=== PATIENT | female | born 1950 | race Caucasian/White ===

== ENCOUNTER 2017-03-24 19:06 | Emergency (ER) | payer MEDICARE ==
[2017-03-24] MEDS ORDERED: DIPHTH,PERTUSS(ACELL),TET VAC 0.5 ML VIAL IM ONE ×2 (19:35→19:37)
--- NOTE | 2017-03-24 19:39 | ERNOTE ---
Medical Problem HPI - Narrative Date of Service: 03/24/17 - General Chief Complaint: Laceration Time Seen by Provider: 03/24/17 19:27 Source: patient, family, RN notes reviewed Exam Limitations: no limitations - Immun/Allergies/Home Medications Immunizations: IMMUNIZATION HX Immunizations Up to Date Yes History of Influenza Vaccine No Hx Pneumococcal Vaccination No Allergies/Adverse Reactions: Allergies kiwi Allergy (Severe, Verified 10/17/16 10:54) Swelling of Throat azithromycin [From Zithromax] Adverse Reaction (Mild, Verified 10/17/16 10:54) HURTS STOMACH cephalexin monohydrate [From Keflex] Adverse Reaction (Mild, Verified 10/17/16 10:54) GI DISTRESS cimetidine [From Tagamet] Adverse Reaction (Mild, Verified 10/17/16 10:54) BOWEL TROUBLE cimetidine HCl [From Tagamet] Adverse Reaction (Mild, Verified 10/17/16 10:54) BOWEL TROUBLE codeine Adverse Reaction (Mild, Verified 10/17/16 10:54) UPSET STOMACH oxycodone HCl [From Percocet] Adverse Reaction (Mild, Verified 10/17/16 10:54) Nausea phentermine Adverse Reaction (Mild, Verified 10/17/16 10:54) CONSTIPATION ranitidine HCl [From Zantac] Adverse Reaction (Mild, Verified 10/17/16 10:54) LOOSE BOWELS rofecoxib [From Vioxx] Adverse Reaction (Mild, Verified 10/17/16 10:54) STOMACH PAIN Home Medications: HOME MEDICATIONS Albuterol Sulfate [Proair Hfa] 1 - 2 puff IH Q4H PRN 02/04/16 [Last Taken Unknown] Budesonide/Formoterol Fumarate [Symbicort 160-4.5 Mcg Inhaler] 2 puff IH BID [Last Taken Unknown] Inhaler,Assist Device,Accesory [Vortex] 1 each MC DAILY 02/04/16 [Last Taken Unknown] Ipratropium/Albuterol Sulfate [Combivent Respimat Inhal [place]] 1 puff IH QID [Last Taken Unknown] Levothyroxine Sodium [Synthroid] 50 mcg PO DAILY 02/04/16 [Last Taken Unknown] Montelukast Sodium [Singulair] 10 mg PO DAILY 02/04/16 [Last Taken Unknown] Wheat Dextrin [Benefiber] 1 each PO DAILY 02/04/16 [Last Taken Unknown] Naproxen Sodium [Aleve] 2 tab PO DAILY 03/24/17 [Last Taken Unknown] - History of Present History Narrative: 67 y/o female brought to the ED by her for injuries d/t a fall. She was bending over, working in a garden, when she lost her balance and fell forward, striking the top of her head on a wall. She reports pain and swelling to the top of her head. She also has abrasions to her lower anterior legs. She denies any loss of consciousness. She is unsure of her last tetanus vaccination. Date (Duration): 03/24/17 Review of Systems - Review of Systems Constitutional: Present: no symptoms reported EYE: Absent: eye pain, blurred vision ENT: Absent: ear discharge, nasal drainage Respiratory: Present: no symptoms reported Cardiology: Absent: chest pain, syncope Gastrointestinal/Abdominal: Present: nausea. Absent: vomiting, abdominal pain Genitourinary: Present: no symptoms reported Musculoskeletal: Absent: neck pain, joint pain, joint swelling Skin: Present: lumps. Absent: lesions Neurological: Present: headache. Absent: dizziness/light-headedness Endocrine: Present: no symptoms reported Hematologic/Lymphatic: Absent: easy bruising, easy bleeding Psych: Present: no symptoms reported - Patient's Past Medical History Patient History - Medical: GERD, Hypothyroidism, Kidney stone, Other Patient History - Cardiac/Respiratory: Asthma Patient History - Cancer: No Hx of Cancer Patient History - Surgical Procedures: Appendectomy, Colonoscopy, Hysterectomy, Tubal Ligation, Other Patient History - Other: None - Social History Living Situations: spouse Abuse History: No History of abuse Psych History: No pertinent hx Smoking Status: Never smoker Have you smoked in the past 12 months: No Do you dip or chew tobacco: No Alcohol Use: rarely Drug Use: none - Immunizations Immunizations Up to Date: Yes Hx Pneumococcal Vaccination: No History of Influenza Vaccine: No Physical Exam - Physical Exam General Appearance: Present: wd/wn, alert, no apparent distress Eye Exam: Normal inspection: bilateral, PERRL: bilateral, EOMI: bilateral Ears, Nose, Throat: Present: normal ENT inspection Neck: Present: normal inspection, nontender, supple, full range of motion Respiratory: Present: no respiratory distress, normal breath sounds, no accessory muscle use, lungs clear Cardiovascular/Chest: Present: regular rate, rhythm, no murmur, normal peripheral pulses Extremity Exam: Present: non-tender, normal range of motion, no edema Neurological Exam: Present: alert, oriented, normal mood/affect, no motor/ sensory deficits Skin Exam: Present: normal color, warm/dry, other - large scalp contusion with overlying abrasions, minor abrasions on anterior lower legs ED Progress - Vital Signs Patient's Vital Signs:: I have reviewed the patient's vital signs. Vital Signs: Vital Signs 03/24/17 03/24/17 19:12 19:36 Temperature 37.4 C Pulse Rate 84 85 Respiratory 14 18 Rate Blood Pressure 170/96 150/83 O2 Sat by Pulse 93 95 Oximetry - Progress/Reassessment Chief Complaint: Laceration Progress:: Improved Departure - Departure Clinical Impression: Abrasions of multiple sites Scalp contusion Qualifiers: Encounter type: initial encounter Qualified Code(s): S00.03XA - Contusion of scalp, initial encounter Fall from standing Qualifiers: Encounter type: initial encounter Qualified Code(s): W19.XXXA - Unspecified fall, initial encounter Disposition: Home self-care Condition: Stable Instructions: Head Injury, Adult, [id number] Additional Instructions: Ice to sore areas as needed Ibuprofen for pain Return for worsening symptoms as discussed Referrals: Zuhair Mays MD [Primary Care Provider] -
[2017-03-24 20:05] VITALS: BP 169/98
== END 2017-03-24 20:02 | disposition home or self-care (01) ==
LOC: ER 19:06
DX: S00.01XA Abrasion of scalp, initial encounter (principal); S80.812A Abrasion, left lower leg, initial encounter; S80.811A Abrasion, right lower leg, initial encounter; W18.39XA Other fall on same level, initial encounter; Y93.H2 Activity, gardening and landscaping; Y92.007 Garden or yard of unspecified non-institutional (private) residence as the place of occurrence of the external cause; S00.03XA Contusion of scalp, initial encounter; K21.9 Gastro-esophageal reflux disease without esophagitis; E03.9 Hypothyroidism, unspecified; Z23 Encounter for immunization

== ENCOUNTER 2017-11-25 13:58 | Inpatient (IN) | payer MEDICARE ==
[2017-11-25] MEDS ORDERED: NORMAL SALINE 1,000 ML IV ONE (14:14)
[2017-11-25] MEDS ORDERED: ONDANSETRON HCL/PF 2 MG/ML VIAL IV ONE (14:14)
[2017-11-25 14:39] LABS: Urine Bilirubin 1 mg/dl (NEGATIVE); Urine Ketone 5 mg/dL (NEGATIVE); Urine Nitrite Negative (NEGATIVE); Urine Protein 100 mg/dL (NEGATIVE); Urine Specific Gravity 1.025 SP.GR. (1.005-1.010)
[2017-11-25 14:43] LABS: Hematocrit 41.9 % (37.0-47.0); Mean Cell Volume 90.3 fl (78-100); Mean Corpuscular Hemoglobin 30.2 pg (27-31); Mean Corpuscular Hgb Conc 33.4 g/dl (32-36); Mean Platelet Volume 9.9 fl (6.0-9.5); Neutrophil # 16.2 K/mm3 (1.3-6.0); Neutrophil % 83.1 % (42-75.0); Platelet Count 237 K/mm3 (150-450); Red Blood Count 4.64 M/mm3 (4.2-5.4); Red Cell Distribution Width 14.2 % (11.5-14.0); White Blood Count 19.6 K/mm3 (4.0-10.5)
[2017-11-25 14:48] LABS: Urine Appearance Slightly Cloudy; Urine Blood 5 /ul (NEGATIVE); Urine Color Yellow; Urine WBC 0-5 /hpf (0-5)
[2017-11-25 14:49] LABS: Urine Bacteria TRACE; Urine RBC None Seen /hpf (0-5)
[2017-11-25 14:53] LABS: Anion Gap 12.4 mmol/L (6.8-13.8); BUN/Creatinine Ratio 17.4 (9.0-21.6); Bilirubin, Total 0.4 mg/dL (0.0-1.1); Ca. Corrected For Albumin 9.4 mg/dL (8.4-10.2); Calcium * 8.9 mg/dL (7.9-10.9); Carbon Dioxide 26.4 mmol/L (24-32.6); Potassium 3.8 mmol/L (3.4-4.6); Total Protein 7.9 gm/dL (6.2-8.2)
[2017-11-25] MEDS ORDERED: ONDANSETRON HCL/PF 2 MG/ML VIAL ONE (15:30)
[2017-11-25] MEDS ORDERED: ALBUTEROL SULFATE 2.5 MG/0.5 ML VIAL.NEB IH ONE ×2 (16:30→16:36)
[2017-11-25] MEDS ORDERED: ACETAMINOPHEN 500 MG TABLET PO ONE (16:44)
--- NOTE | 2017-11-25 16:49 | ERNOTE ---
Medical Problem HPI - Narrative Date of Service: 11/25/17 - General Chief Complaint: Flu Symptoms Time Seen by Provider: 11/25/17 14:10 Source: patient Exam Limitations: no limitations - Immun/Allergies/Home Medications Immunizations: IMMUNIZATION HX Immunizations Up to Date Yes History of Influenza Vaccine Yes Hx Pneumococcal Vaccination Yes Allergies/Adverse Reactions: Allergies kiwi Allergy (Severe, Verified 11/25/17 14:06) Swelling of Throat azithromycin [From Zithromax] Adverse Reaction (Mild, Verified 11/25/17 14:06) HURTS STOMACH cephalexin monohydrate [From Keflex] Adverse Reaction (Mild, Verified 11/25/17 14:06) GI DISTRESS cimetidine [From Tagamet] Adverse Reaction (Mild, Verified 11/25/17 14:06) BOWEL TROUBLE cimetidine HCl [From Tagamet] Adverse Reaction (Mild, Verified 11/25/17 14:06) BOWEL TROUBLE codeine Adverse Reaction (Mild, Verified 11/25/17 14:06) UPSET STOMACH oxycodone HCl [From Percocet] Adverse Reaction (Mild, Verified 11/25/17 14:06) Nausea phentermine Adverse Reaction (Mild, Verified 11/25/17 14:06) CONSTIPATION ranitidine HCl [From Zantac] Adverse Reaction (Mild, Verified 11/25/17 14:06) LOOSE BOWELS rofecoxib [From Vioxx] Adverse Reaction (Mild, Verified 11/25/17 14:06) STOMACH PAIN Home Medications: HOME MEDICATIONS Albuterol Sulfate [Proair Hfa] 1 - 2 puff IH Q4H PRN 02/04/16 [Last Taken Unknown] Budesonide/Formoterol Fumarate [Symbicort 160-4.5 Mcg Inhaler] 2 puff IH BID [Last Taken Unknown] Inhaler,Assist Device,Accesory [Vortex] 1 each MC DAILY 02/04/16 [Last Taken Unknown] Ipratropium/Albuterol Sulfate [Combivent Respimat Inhal [place]] 1 puff IH QID [Last Taken Unknown] Levothyroxine Sodium [Synthroid] 50 mcg PO DAILY 02/04/16 [Last Taken Unknown] Montelukast Sodium [Singulair] 10 mg PO DAILY 02/04/16 [Last Taken Unknown] Wheat Dextrin [Benefiber] 1 each PO DAILY 02/04/16 [Last Taken Unknown] Naproxen Sodium [Aleve] 2 tab PO DAILY 03/24/17 [Last Taken Unknown] - History of Present History Narrative: patient has had cough with fever for last 2-3 days Timing: constant, getting worse Severity: moderate Modifying Factors - (Improves): Present: other - nothing Modifying Factors - (Worsens): Present: movement Review of Systems - Narrative Narrative: unremarkable - Review of Systems Constitutional: Present: See HPI, weakness, fatigue, malaise EYE: Present: no symptoms reported ENT: Present: no symptoms reported Respiratory: Present: See HPI, shortness of breath, cough, orthopnea, wheezing Cardiology: Present: no symptoms reported Gastrointestinal/Abdominal: Present: no symptoms reported Genitourinary: Present: no symptoms reported Musculoskeletal: Present: no symptoms reported Skin: Present: no symptoms reported Neurological: Present: no symptoms reported Endocrine: Present: no symptoms reported Hematologic/Lymphatic: Present: no symptoms reported Psych: Present: no symptoms reported All Other Systems: All systems neg except as marked - Narrative Narrative: unremarkable - Patient's Past Medical History Patient History - Medical: GERD, Hypothyroidism, Kidney stone, Other Patient History - Cardiac/Respiratory: Asthma Patient History - Cancer: No Hx of Cancer Patient History - Surgical Procedures: Appendectomy, Colonoscopy, Hysterectomy, Tubal Ligation, Other, Orthopedic Patient History - Other: None LMP (females 10-50): Menopausal - Family History Family History:: no untoward family reactions to anesthesia, no familial bleeding tendencies, no family history of clotting disorders, no family history of premature - Social History Living Situations: home Abuse History: No History of abuse Psych History: No pertinent hx Does anyone smoke in the home?: No Smoking Status: Never smoker Have you smoked in the past 12 months: No Do you dip or chew tobacco: No Patient requests Smoking Cessation Consult: No Initiate information on Smoking Cessation: No Alcohol Use: none Drug Use: none - Immunizations Immunizations Up to Date: Yes Hx Pneumococcal Vaccination: Yes History of Influenza Vaccine: Yes Physical Exam - Physical Exam General Appearance: Present: moderate distress Head Exam: Present: normal inspection, no evidence of injury Eye Exam: Normal inspection: bilateral, PERRL: bilateral, EOMI: bilateral Ears, Nose, Throat: Present: normal ENT inspection Neck: Present: normal inspection, nontender Respiratory: Present: respiratory distress, crackles, rales, rhonchi, stridor Cardiovascular/Chest: Present: regular rate, rhythm, no murmur, normal peripheral pulses Peripheral Pulses: N=norm/S=strong/W=weak/B=bound/A=absent: Carotid (R): Normal , Carotid (L): Normal, Radial (R): Normal, Radial (L): Normal, Femoral (R): Normal, Femoral (L): Normal, Dorsalis-pedis (R): Normal, Dorsalis-pedis (L): Normal Gastrointestinal/Abdominal: Present: normal bowel sounds, nontender, nondistended, soft, no organomegaly Back Exam: Present: normal inspection, normal range of motion, no CVA tenderness , no vertebral tenderness Extremity Exam: Present: normal inspection, non-tender, normal range of motion, no edema Neurological Exam: Present: alert, oriented, normal mood/affect, no motor/ sensory deficits DTR: N=norm/NB=norm/brisk/A=abs/DD=dull/dimin/HC=hyperactive: Bicep (R): Normal , Bicep (L): Normal, Tricep (R): Normal, Tricep (L): Normal, Knee (R): Normal, Knee (L): Normal Skin Exam: Present: normal color, warm/dry Lymphatic Exam: Present: no adenopathy ED Progress - Date and Time Seen: Date and Time: 11/25/17 16:46 condition unchanged - Results and Orders Patient's Lab Results:: I have reviewed the patient's lab results. - Vital Signs Patient's Vital Signs:: I have reviewed the patient's vital signs. Vital Signs: Vital Signs 11/25/17 11/25/17 11/25/17 14:03 15:51 16:06 Temperature 38.5 C H Pulse Rate 115 H 108 H 104 H Respiratory 18 15 14 Rate Blood Pressure 149/97 139/76 123/69 O2 Sat by Pulse 95 96 92 Oximetry 11/25/17 16:21 Temperature Pulse Rate 99 Respiratory 14 Rate Blood Pressure 111/78 O2 Sat by Pulse 95 Oximetry - EKG EKG: NSR - X-Ray X-Ray #1 X-Ray: chest Interpretation: Discd w/ radiologist - right middle pneumonia - Progress/Reassessment Chief Complaint: Flu Symptoms Progress:: Unchanged - Transfer of Care Expected Disposition: Admit Plan - Plan Plan: case discussed with dr chun, to admit to observation Departure Clinical Impression: Pneumonia - Departure Disposition: [facility] Condition: Fair
[2017-11-25] MEDS ORDERED: ALBUTEROL SULFATE 2.5 MG/0.5 ML VIAL.NEB IH PRN (16:51)
[2017-11-25] MEDS: cefTRIAXone SODIUM 1,000 MG in DEXTROSE 5 % IN WATER 50 ML IV SCH ×2 (17:08)
[2017-11-25] MEDS: AZITHROMYCIN 500 MG in DEXTROSE 5 % IN WATER 250 ML IV SCH ×2 (18:10)
[2017-11-25] MEDS ORDERED: ONDANSETRON 4 MG TAB.RAPDIS PO PRN (19:54)
[2017-11-25] MEDS ORDERED: MORPHINE SULFATE 2 MG/ML DISP.SYRIN IV PRN (19:55)
--- NOTE | 2017-11-25 20:05 | HP ---
Chief Complaint - Chief Complaint Date of Service: 11/25/17 Time of Service: 20:01 Chief Complaint: cough, dyspnea, fever History of Present Illness: Lorena is a 67 year old female patient of Dr Muse with a PMH of moderate, persistent asthma, diverticulitis, gerd, HLD, hypothyroidism, and eczema who presented to the ER today with c/o cough, fever, nausea, body aches and sore throat. ER evaluation showed temp 38.7, hr 105, bp 111/78. labs significant for elevated wbc at 19.6 with 83.1 neutrophils, lactic acid 1.8, influenza and strep negative, and UA positive for 100 protein, 5 blood, 1 bili and 25 leukocytes. Chest xray showed RLL pneumonia. Lungs sounds scattered rhonchi with wheezes and rales in the RLL. Patient to be admitted to observation for RLL pneumonia and asthma exacerbation. - Patient's Past Medical History Patient History - Medical: GERD, Hypothyroidism, Kidney stone, Other Patient History - Cardiac/Respiratory: Asthma Patient History - Cancer: No Hx of Cancer Patient History - Surgical Procedures: Appendectomy, Colonoscopy, Hysterectomy, Tubal Ligation, Other, Orthopedic Patient History - Other: None LMP (females 10-50): Menopausal - Family History Family History:: no untoward family reactions to anesthesia, no familial bleeding tendencies, no family history of clotting disorders, no family history of premature - Family History Father Family History - Medical: Family History - Cancer: Lung Mother Family History - Medical: Hypothyroidism - Social History Living Situations: spouse Abuse History: No History of abuse Psych History: No pertinent hx Does anyone smoke in the home?: No Smoking Status: Former smoker Have you smoked in the past 12 months: No Do you dip or chew tobacco: No Patient requests Smoking Cessation Consult: No Initiate information on Smoking Cessation: No Alcohol Use: none Drug Use: none - Immunizations Immunizations Up to Date: Yes Hx Pneumococcal Vaccination: Yes History of Influenza Vaccine: Yes Review Of Systems (GEN) - Review of Systems Generalized/Overall Review: Present: Chills, Fever, Malaise EENTM: Present: Nose Congestion, Throat Pain Respiratory: Present: Cough, Shortness of Breath, Wheezing Cardiac: Present: No Symptoms Reported Abdominal: Present: Nausea. Absent: Abdominal Pain Genitourinary: Present: No Symptoms Reported Musculoskeletal: Present: No Symptoms Reported Neurological: Present: Headache Skin: Present: No Symptoms Reported Endocrine: Present: No Symptoms Reported Misc: All systems neg except as marked Immunizations: IMMUNIZATION HX Immunizations Up to Date Yes History of Influenza Vaccine Yes Hx Pneumococcal Vaccination Yes Allergies/Adverse Reactions: Allergies Allergy/AdvReac Type Severity Reaction Status Date / Time inga Allergy Severe Swelling Verified 11/25/17 18:00 of Throat cephalexin monohydrate AdvReac Mild GI DISTRESS Verified 11/25/17 18:00 [From Keflex] cimetidine [From Tagamet] AdvReac Mild BOWEL Verified 11/25/17 18:00 TROUBLE cimetidine HCl [From Tagamet] AdvReac Mild BOWEL Verified 11/25/17 18:00 TROUBLE codeine AdvReac Mild UPSET Verified 11/25/17 18:00 STOMACH oxycodone HCl [From Percocet] AdvReac Mild Nausea Verified 11/25/17 18:00 phentermine AdvReac Mild CONSTIPATIO Verified 11/25/17 18:00 N ranitidine HCl [From Zantac] AdvReac Mild LOOSE Verified 11/25/17 18:00 BOWELS rofecoxib [From Vioxx] AdvReac Mild STOMACH Verified 11/25/17 18:00 PAIN Home Medications: HOME MEDICATIONS Albuterol Sulfate [Proair Hfa] 1 - 2 puff IH Q4H PRN 02/04/16 [Last Taken Unknown] Inhaler,Assist Device,Accesory [Vortex] 1 each MC DAILY 02/04/16 [Last Taken Unknown] Levothyroxine Sodium [Synthroid] 50 mcg PO DAILY 02/04/16 [Last Taken Unknown] Montelukast Sodium [Singulair] 10 mg PO DAILY 02/04/16 [Last Taken Unknown] Fluticasone/Salmeterol [Advair 100-50 Diskus] 2 puff IH BID 11/25/17 [Last Taken Unknown] Omeprazole 40 mg PO DAILY 11/25/17 [Last Taken Unknown] Exam - Exam Vital Signs: Vital Signs - Last Taken Temp 37.3 C 11/25/17 19:23 Pulse 97 11/25/17 19:23 Resp 16 11/25/17 19:23 BP 108/79 11/25/17 19:23 Pulse Ox 94 11/25/17 19:23 Constitutional: Present: Alert, Oriented x3, Cooperative, No distress ENT Exam: Present: hearing grossly normal Eye Exam: bilateral eye: normal inspection Neck: Present: lymphadenopathy (R), lymphadenopathy (L) Breasts: Present: Exam deferred Respiratory: Present: respiratory distress - mild, rales - RLL, rhonchi - scattered, wheezing - ecattered Cardiovascular/Chest: Present: regular rate, rhythm, no murmur Abdomen: Present: soft, nontender, nondistended, obese /Rectal: Present: Exam deferred Extremity: Present: non-tender, normal inspection Skin Exam: Present: normal color, warm/dry, no cyanosis Diagnostic Studies: Laboratory Results WBC 19.6 K/mm3 (4.0-10.5) H 11/25/17 14:36 RBC 4.64 M/mm3 (4.2-5.4) 11/25/17 14:36 Hgb 14.0 gm/dL (12.5-16.0) 11/25/17 14:36 Hct 41.9 % (37.0-47.0) 11/25/17 14:36 MCV 90.3 fl (78-100) 11/25/17 14:36 MCH 30.2 pg (27-31) 11/25/17 14:36 MCHC 33.4 g/dl (32-36) 11/25/17 14:36 RDW 14.2 % (11.5-14.0) H 11/25/17 14:36 Plt Count 237 K/mm3 (150-450) 11/25/17 14:36 MPV 9.9 fl (6.0-9.5) H 11/25/17 14:36 Immature Gran % (Auto) 2.80 % (0.001-0.429) H 11/25/17 14:36 Immature Gran # (Auto) 0.55 K/mm3 (0.000-0.0310) H 11/25/17 14:36 Neutrophils % 83.1 % (42-75.0) H 11/25/17 14:36 Lymphocytes % 7.5 % (20-51) L 11/25/17 14:36 Monocytes % 6.2 % (0.0-9) 11/25/17 14:36 Eosinophils % 0.2 % (0.0-3.0) 11/25/17 14:36 Basophils % 0.2 % (0.0-1.0) 11/25/17 14:36 Nucleated RBC % 0.0 k/mm3 (0-1) 11/25/17 14:36 Neutrophils # 16.2 K/mm3 (1.3-6.0) H 11/25/17 14:36 Lymphocytes # 1.5 k/mm3 (1.5-3.5) 11/25/17 14:36 Monocytes # 1.2 k/mm3 (0.0-1.0) H 11/25/17 14:36 Eosinophils # 0.0 k/mm3 (0.0-0.7) 11/25/17 14:36 Absolute Basophils 0.0 k/mm3 (0.0-0.1) 11/25/17 14:36 Sodium 133 mmol/L (132-142) 11/25/17 14:36 Plasma Sodium 134 mmol/L (130-142) 11/25/17 14:36 Potassium 3.8 mmol/L (3.4-4.6) 11/25/17 14:36 Chloride 98 mmol/L (97-106) 11/25/17 14:36 Carbon Dioxide 26.4 mmol/L (24-32.6) 11/25/17 14:36 Anion Gap 12.4 mmol/L (6.8-13.8) 11/25/17 14:36 BUN 19 mg/dL (3-23) 11/25/17 14:36 Creatinine 1.09 mg/dL (0.4-1.4) 11/25/17 14:36 Est GFR (Non-Af Amer) 53 mL/min (60-130) L D 11/25/17 14:36 BUN/Creatinine Ratio 17.4 (9.0-21.6) 11/25/17 14:36 Random Glucose 150 mg/dL (70-110) H 11/25/17 14:36 Lactic Acid, Venous 1.8 mmol/L (0.4-1.9) 11/25/17 15:15 Calcium 8.9 mg/dL (7.9-10.9) 11/25/17 14:36 Calcium Adj for Albumin 9.4 mg/dL (8.4-10.2) 11/25/17 14:36 Total Bilirubin 0.4 mg/dL (0.0-1.1) 11/25/17 14:36 AST 25 U/L (0-48) 11/25/17 14:36 ALT 23 U/L (19-67) 11/25/17 14:36 Alkaline Phosphatase 51 U/L (50-170) 11/25/17 14:36 C-Reactive Prot, Quant Less than 0.2 mg/dL (0.0-0.9) 11/25/17 14:28 Total Protein 7.9 gm/dL (6.2-8.2) 11/25/17 14:36 Albumin 3.0 gm/dl (3.4-5.0) L 11/25/17 14:36 Procalcitonin 0.52 ng/mL (0.05-0.50) H 11/25/17 14:28 Urine Color Yellow 11/25/17 14:36 Urine Appearance Slightly cloudy 11/25/17 14:36 Urine pH 6.0 pH (5.0-7.0) 11/25/17 14:36 Ur Specific [place] 1.025 SP.GR. (1.005-1.010) 11/25/17 14:36 Urine Protein 100 mg/dL (NEGATIVE) H 11/25/17 14:36 Urine Glucose (UA) Negative mg/dL (NEGATIVE) 11/25/17 14:36 Urine Ketones 5 mg/dL (NEGATIVE) 11/25/17 14:36 Urine Blood 5 /ul (NEGATIVE) H 11/25/17 14:36 Urine Nitrate Negative (NEGATIVE) 11/25/17 14:36 Urine Bilirubin 1 mg/dl (NEGATIVE) H 11/25/17 14:36 Urine Ictotest TNP 11/25/17 14:36 Prot Sulfosalicylic Acd TNP 11/25/17 14:36 Urine Urobilinogen 2.0 EU/dl (NORMAL) H 11/25/17 14:36 Ur Leukocyte Esterase 25 /ul (NEGATIVE) H 11/25/17 14:36 Urine RBC None seen /hpf (0-5) 11/25/17 14:36 Urine WBC 0-5 /hpf (0-5) 11/25/17 14:36 Ur Epithelial Cells 0-5 /hpf (0-5) 11/25/17 14:36 Urine Bacteria Trace (NONE) 11/25/17 14:36 Urine Culture Comments Culture to follow 11/25/17 14:36 Influenza Type A Ag Negative (NEGATIVE) 11/25/17 14:36 Influenza Type B Ag Negative (NEGATIVE) 11/25/17 14:36 Group A Strep Rapid Negative (NEGATIVE) 11/25/17 14:36 Assessment/Plan - Narrative Narrative: Lorena is a 67 year old female admitted with pneumonia and an asthma exacerbation, likely secondary to the pneumonia. Oxygen saturation remains above 90% since admission. However, the patient's lung sounds are severely rhonchi with wheezes throughout, in addition to the rales in the RLL. The patient's asthmatic status puts her at higher risk for respiratory complications from pneumonia and she warrants observation overnight. Will treat the RLL pneumonia with IV rocephin and azithromycin. good pulmonary toileting will be encouraged. Given her asthma exacerbation, duonebs have been ordered with pulmicort nebulizers. in addition, will continue singular from her home medications. She has indicated that her oral intake has been poor for the last 3-4 days since becoming ill, so will continue to hydrate her gently with iv fluids. GI prophlyxasis will consist on omeprazole. VTE will be covered with lovenox. Patient is a full code. - Assessment/Plan (1) Pneumonia Problem: Acute Qualifiers: Pneumonia type: due to unspecified organism Laterality: right Lung location: lower lobe of lung Qualified Code(s): J18.1 - Lobar pneumonia, unspecified organism (2) Asthma Problem: Acute Qualifiers: Asthma severity: moderate Asthma persistence: persistent Asthma complication type: with acute exacerbation Qualified Code(s): J45.41 - Moderate persistent asthma with (acute) exacerbation (3) GERD (gastroesophageal reflux disease) Problem: Chronic Qualifiers: Esophagitis presence: esophagitis presence not specified Qualified Code(s) : K21.9 - Gastro-esophageal reflux disease without esophagitis (4) HLD (hyperlipidemia) Problem: Chronic Qualifiers: Hyperlipidemia type: unspecified Qualified Code(s): E78.5 - Hyperlipidemia , unspecified (5) Hypothyroidism Problem: Chronic Qualifiers: Hypothyroidism type: acquired Qualified Code(s): E03.9 - Hypothyroidism, unspecified
[2017-11-25] MEDS: ALBUTEROL SULFATE/IPRATROPIUM 3 ML NEBU IH SCH (20:50)
[2017-11-25] MEDS ORDERED: FLUTICASONE IH SCH (21:15)
[2017-11-25] MEDS ORDERED: SALMETEROL IH SCH (21:15)
[2017-11-25] MEDS ORDERED: ALBUTEROL SULFATE 2.5 MG/0.5 ML VIAL.NEB IH SCH (21:45)
[2017-11-25] MEDS: ENOXAPARIN SODIUM 40 MG/0.4 ML SYRG SC SCH (21:54)
[2017-11-25] MEDS: ACETAMINOPHEN 325 MG TABLET PO PRN (21:54)
[2017-11-25] MEDS: BUDESONIDE 0.25 MG/2 ML VIAL.NEB IH SCH ×2 (22:01→22:05)
[2017-11-25] MEDS: KETOROLAC TROMETHAMINE 30 MG/ML VIAL IV PRN (23:32)
[2017-11-26] MEDS: NORMAL SALINE 1,000 ML IV PRN ×2 (01:17→15:19)
[2017-11-26] MEDS: cefTRIAXone SODIUM 1,000 MG in DEXTROSE 5 % IN WATER 50 ML IV SCH ×4 (05:23→16:06)
[2017-11-26] MEDS: ACETAMINOPHEN 325 MG TABLET PO PRN (05:31)
--- NOTE | 2017-11-26 05:56 | PN ---
Subjective - Date and Time Seen Date: 11/26/17 Time: 05:54 Subjective Narrative: says that she feels a little bit better but c/o chills currently. still c/o dyspnea and wheezing. Objective - Review of Systems Generalized/Overall Review: Reports: Chills, Fever, Malaise EENTM: Reports: No Symptoms Reported Respiratory: Reports: Cough, Shortness of Breath, Wheezing Cardiac: Reports: No Symptoms Reported Abdominal: Reports: No Symptoms Reported Genitourinary Symptoms: Reports: No Symptoms Reported Musculoskeletal Complaints: Reports: No Symptoms Reported Neurological: Reports: Headache Skin: Reports: No Symptoms Reported Endocrine: Reports: No Symptoms Reported Misc: All systems neg except as marked - Vitals Vitals: Last Vital Signs Temp 36.6 C 11/26/17 04:07 Pulse 75 11/26/17 04:07 Resp 18 11/26/17 04:07 BP 100/61 11/26/17 04:07 Pulse Ox 94 11/26/17 04:07 - Exam Constitutional: Present: Alert, Oriented x3, Cooperative ENT Exam: Present: hearing grossly normal Neck: Present: lymphadenopathy (R), lymphadenopathy (L) Breasts: Present: Exam deferred Respiratory: Present: rhonchi - diffuse coarse, wheezing - mild, scattered Cardiovascular/Chest: Present: regular rate, rhythm, no murmur Abdomen: Present: soft, nontender, nondistended, obese /Rectal: Present: Exam deferred Extremity: Present: non-tender, normal inspection Skin Exam: Present: normal color, warm/dry, no cyanosis Assessment/Plan Plan Narrative: Lorena is a 67 year old female admitted with pneumonia and an asthma exacerbation, likely secondary to the pneumonia. Oxygen saturation remains above 90% since admission. However, the patient's lung sounds are severely rhonchi with wheezes throughout, in addition to the rales in the RLL. The patient's asthmatic status puts her at higher risk for respiratory complications from pneumonia and she warrants observation overnight. Will treat the RLL pneumonia with IV rocephin and azithromycin. good pulmonary toileting will be encouraged. Given her asthma exacerbation, duonebs have been ordered with pulmicort nebulizers. in addition, will continue singular from her home medications. She has indicated that her oral intake has been poor for the last 3-4 days since becoming ill, so will continue to hydrate her gently with iv fluids. GI prophlyxasis will consist on omeprazole. VTE will be covered with lovenox. Patient is a full code. 11/26/17 - lungs sounds still coarse rhonchi with wheezes. continue breathing treatments and pulmicort treatment. Patient is still spiking fevers from pneumonia - using tylenol / toradol as needed. continue iv rocephin and azithromycin. if oral intake improves today can consider d/c iv fluids. am labs pending. - Problems/Diagnosis (1) Pneumonia Problem: Acute Qualifiers: Pneumonia type: due to unspecified organism Laterality: right Lung location: lower lobe of lung Qualified Code(s): J18.1 - Lobar pneumonia, unspecified organism (2) Asthma Problem: Acute Qualifiers: Asthma severity: moderate Asthma persistence: persistent Asthma complication type: with acute exacerbation Qualified Code(s): J45.41 - Moderate persistent asthma with (acute) exacerbation (3) GERD (gastroesophageal reflux disease) Problem: Chronic Qualifiers: Esophagitis presence: esophagitis presence not specified Qualified Code(s) : K21.9 - Gastro-esophageal reflux disease without esophagitis (4) HLD (hyperlipidemia) Problem: Chronic Qualifiers: Hyperlipidemia type: unspecified Qualified Code(s): E78.5 - Hyperlipidemia , unspecified (5) Hypothyroidism Problem: Chronic Qualifiers: Hypothyroidism type: acquired Qualified Code(s): E03.9 - Hypothyroidism, unspecified
[2017-11-26] MEDS: BUDESONIDE 0.25 MG/2 ML VIAL.NEB IH SCH ×2 (06:06→19:35)
[2017-11-26] MEDS: ALBUTEROL SULFATE/IPRATROPIUM 3 ML NEBU IH SCH ×4 (06:06→19:36)
[2017-11-26 06:11] LABS: Hematocrit 35.5 % (37.0-47.0); Hemoglobin 11.8 gm/dL (12.5-16.0); Mean Cell Volume 90.3 fl (78-100); Mean Corpuscular Hgb Conc 33.2 g/dl (32-36); Mean Platelet Volume 10.3 fl (6.0-9.5); Neutrophil # 10.4 K/mm3 (1.3-6.0); Neutrophil % 74.9 % (42-75.0); Platelet Count 215 K/mm3 (150-450); Red Blood Count 3.93 M/mm3 (4.2-5.4); Red Cell Distribution Width 14.2 % (11.5-14.0); White Blood Count 13.8 K/mm3 (4.0-10.5)
[2017-11-26 06:18] LABS: BUN/Creatinine Ratio 15.8 (9.0-21.6); Calcium * 8.1 mg/dL (7.9-10.9); Carbon Dioxide 26.5 mmol/L (24-32.6); Estimated Creat Clear 47.5; Potassium 3.5 mmol/L (3.4-4.6)
[2017-11-26] MEDS ORDERED: ALBUTEROL SULFATE 2.5 MG/0.5 ML VIAL.NEB IH SCH (07:00)
[2017-11-26] MEDS: LEVOTHYROXINE SODIUM 50 MCG TABLET PO SCH (07:45)
[2017-11-26] MEDS: PANTOPRAZOLE SODIUM 40 MG TABLET.EC PO SCH (07:45)
[2017-11-26] MEDS ORDERED: OMEPRAZOLE 20 MG CAPSULE.SA PO SCH (09:00)
[2017-11-26] MEDS ORDERED: MONTELUKAST SODIUM 10 MG TABLET PO SCH (09:00)
[2017-11-26] MEDS: KETOROLAC TROMETHAMINE 30 MG/ML VIAL IV PRN ×2 (09:07→21:57)
[2017-11-26] MEDS: [UNRECOGNIZED DRUG - OTHER] MC SCH (09:13)
[2017-11-26] MEDS: AZITHROMYCIN 500 MG in DEXTROSE 5 % IN WATER 250 ML IV SCH ×2 (17:11)
--- NOTE | 2017-11-26 17:56 | PN ---
Subjective - Date and Time Seen Date: 11/26/17 Time: 17:35 Subjective Narrative: Lorena Blanchard is a 67-year-old female patient who presented to the emergency room during the night and was admitted this morning by the hospitalist. She was admitted to observation status with diagnosis of pneumonia and complicated by asthma. She is also been hypotensive and very weak. She states she is feeling some better this evening. But she remains weak and has a burning sensation in her chest when she is coughing. She states she gets very short of breath just walking to the bathroom and back. Even changing positions in bed is causing shortness of breath. Objective Objective Narrative: Her last blood pressure was 99/60 which is low for her. Her skin is warm dry and pale but I do not see any cyanosis in the fingertips or perioral areas. She has audible expiratory wheezes and rhonchi. Auscultation shows fairly clear inspiratory breathing now but with audible wheezes and rhonchi. There is diminished breath sounds in the right lower lobe where the pneumonia is. - Review of Systems Generalized/Overall Review: Reports: Weakness, Chills, Fever, Malaise, Fatigue EENTM: Reports: No Symptoms Reported Respiratory: Reports: Cough, Shortness of Breath, Stridor, Wheezing Cardiac: Reports: No Symptoms Reported Abdominal: Reports: No Symptoms Reported Genitourinary Symptoms: Reports: No Symptoms Reported Musculoskeletal Complaints: Reports: No Symptoms Reported Neurological: Reports: Headache Skin: Reports: No Symptoms Reported Endocrine: Reports: No Symptoms Reported Misc: All systems neg except as marked - Vitals Vitals: Last Vital Signs Temp 36.9 C 11/26/17 14:44 Pulse 77 11/26/17 14:44 Resp 20 11/26/17 14:44 BP 99/53 11/26/17 14:44 Pulse Ox 94 11/26/17 14:44 - Abnormal Lab Findings Abnormal Lab Findings: Abnormal Lab Results 11/26/17 Range/Units 06:03 WBC 13.8 H D (4.0-10.5) K/mm3 RBC 3.93 L (4.2-5.4) M/mm3 Hgb 11.8 L (12.5-16.0) gm/dL Hct 35.5 L (37.0-47.0) % RDW 14.2 H (11.5-14.0) % MPV 10.3 H (6.0-9.5) fl Immature Gran % (Auto) 0.90 H (0.001-0.429) % Immature Gran # (Auto) 0.13 H (0.000-0.0310) K/mm3 Lymphocytes % 17.3 L (20-51) % Neutrophils # 10.4 H (1.3-6.0) K/mm3 - EKG/Xray Findings XRAY: chest Interpretation: Reviewed by me - Exam Exam Narrative: See narrative and physical exam above. Constitutional: Present: Alert, Oriented x3, Cooperative, Well developed, Well nourished, Moderate distress, Lethargic, Elderly, Overweight, Obese ENT Exam: Present: normal ENT inspection, hearing grossly normal, pharynx normal Neck: Present: non-tender, full range of motion, supple, normal inspection. Absent: lymphadenopathy (R) Breasts: Present: Exam deferred Respiratory: Present: chest non-tender, respiratory distress, decreased breath sounds - In the right lower lobe, accessory muscle use, rhonchi, stridor, wheezing, expiration (prolonged), No rales, plerual rub Cardiovascular/Chest: Present: normal peripheral pulses, regular rate, rhythm, no chest tenderness, no edema, no gallop, no JVD, no murmur Abdomen: Present: Normal bowel sounds, soft, nontender, nondistended /Rectal: Present: Exam deferred Extremity: Present: normal range of motion, non-tender, normal inspection, no pedal edema, no calf tenderness, normal capillary refill Skin Exam: Present: normal color, warm/dry, no cyanosis, pallor Lymphatic: Present: no adenopathy Neurologic: Present: filtration plant mechanic II-XII nml as tested Appearance: Present: appropriate appearance, appropriate insight, neat, no memory impairment Eye contact: Present: cooperative, good eye contact, normal speech Thoughts: Present: normal thought pattern Assessment/Plan Plan Narrative: Continue with respiratory therapy as ordered. Continue IV antibiotics of Rocephin and azithromycin. Repeat CBC and BMP tomorrow morning. Add guaifenesin 600 mg by mouth twice a day as a mucolytic. - Problems/Diagnosis (1) Pneumonia Problem: Acute Qualifiers: Pneumonia type: due to unspecified organism Laterality: right Lung location: lower lobe of lung Qualified Code(s): J18.1 - Lobar pneumonia, unspecified organism (2) Asthma Problem: Acute Qualifiers: Asthma severity: moderate Asthma persistence: persistent Asthma complication type: with acute exacerbation Qualified Code(s): J45.41 - Moderate persistent asthma with (acute) exacerbation (3) Hypotension Problem: Acute (4) Leukocytosis Problem: Acute (5) Dyspnea on exertion Problem: Acute
[2017-11-26] MEDS: MONTELUKAST SODIUM 10 MG TABLET PO SCH (20:08)
[2017-11-26] MEDS: ENOXAPARIN SODIUM 40 MG/0.4 ML SYRG SC SCH (20:09)
[2017-11-27] MEDS: cefTRIAXone SODIUM 1,000 MG in DEXTROSE 5 % IN WATER 50 ML IV SCH ×2 (04:30)
[2017-11-27] MEDS: BUDESONIDE 0.25 MG/2 ML VIAL.NEB IH SCH ×2 (06:06→18:31)
[2017-11-27] MEDS: ALBUTEROL SULFATE/IPRATROPIUM 3 ML NEBU IH SCH ×4 (06:06→18:31)
[2017-11-27 06:07] LABS: Hematocrit 33.4 % (37.0-47.0); Mean Corpuscular Hemoglobin 29.6 pg (27-31); Mean Corpuscular Hgb Conc 32.9 g/dl (32-36); Mean Platelet Volume 10.2 fl (6.0-9.5); Neutrophil # 3.8 K/mm3 (1.3-6.0); Neutrophil % 52.8 % (42-75.0); Platelet Count 251 K/mm3 (150-450); Red Blood Count 3.71 M/mm3 (4.2-5.4); Red Cell Distribution Width 14.2 % (11.5-14.0); White Blood Count 7.2 K/mm3 (4.0-10.5)
[2017-11-27 06:19] LABS: Anion Gap 10.6 mmol/L (6.8-13.8); Calcium * 7.9 mg/dL (7.9-10.9); Carbon Dioxide 26.9 mmol/L (24-32.6); Estimated Creat Clear 56.4; Potassium 3.5 mmol/L (3.4-4.6)
[2017-11-27] MEDS: PANTOPRAZOLE SODIUM 40 MG TABLET.EC PO SCH (07:04)
[2017-11-27] MEDS: LEVOTHYROXINE SODIUM 50 MCG TABLET PO SCH (07:04)
[2017-11-27] MEDS: NORMAL SALINE 1,000 ML IV PRN (07:08)
[2017-11-27] MEDS: [UNRECOGNIZED DRUG - OTHER] MC SCH (09:40)
[2017-11-27] MEDS: CEFUROXIME AXETIL 500 MG TABLET PO SCH ×2 (12:25→21:34)
[2017-11-27] MEDS ORDERED: AZITHROMYCIN 250 MG TABLET PO ONE (17:00)
--- NOTE | 2017-11-27 18:02 | PN ---
Subjective - Date and Time Seen Date: 11/27/17 Time: 08:30 Subjective Narrative: Mrs. Blanchard is doing quite a bit better this morning. She did have a fever with a diaphoresis at about 2:00 this morning. She has not had fever since that time. She is breathing easier and her sentences are much longer this morning and they were last evening when I visited with her. Objective Objective Narrative: Her vital signs of been stable and afebrile today. Her skin is warm and dry and she has better color today. Her HEENT is unremarkable. Heart has a regular rate and rhythm without murmur. Lungs show improved I will volume and improved his respiratory breath sounds. Expiratory breath sounds are still demonstrating adventitious rhonchi and diffuse wheezing. She is coughing some and occasionally with some clear mucus. Her appetite is good this morning. She is able to ambulate to the bathroom but still gets some dyspnea walking short distances. As improved. Her white count has dropped from 19,000 to 7000. There is still some left shift in the differential. Her IV site as become inflamed and painful. Therefore I have elected to switch her to oral antibiotics and discontinue the IV. I will plan on her discharge for tomorrow morning. - Review of Systems Generalized/Overall Review: Reports: Chills, Fever, Diaphoresis, Fatigue EENTM: Reports: No Symptoms Reported Respiratory: Reports: Cough, Shortness of Breath, Orthopnea, Stridor, Wheezing Cardiac: Reports: No Symptoms Reported Abdominal: Reports: No Symptoms Reported Genitourinary Symptoms: Reports: No Symptoms Reported Musculoskeletal Complaints: Reports: No Symptoms Reported Neurological: Reports: No Symptoms Reported Skin: Reports: No Symptoms Reported Endocrine: Reports: No Symptoms Reported - Vitals Vitals: Last Vital Signs Temp 37.2 C 11/27/17 14:47 Pulse 75 11/27/17 14:47 Resp 16 11/27/17 14:47 BP 144/70 11/27/17 14:47 Pulse Ox 96 11/27/17 14:47 - Abnormal Lab Findings Abnormal Lab Findings: Abnormal Lab Results 11/27/17 Range/Units 05:35 RBC 3.71 L (4.2-5.4) M/mm3 Hgb 11.0 L (12.5-16.0) gm/dL Hct 33.4 L (37.0-47.0) % RDW 14.2 H (11.5-14.0) % MPV 10.2 H (6.0-9.5) fl Immature Gran % (Auto) 3.20 H (0.001-0.429) % Immature Gran # (Auto) 0.23 H (0.000-0.0310) K/mm3 Monocytes % 9.8 H (0.0-9) % - Exam Exam Narrative: The chest x-ray shows a large masslike density and the right lower lobe which is probably pneumonia but does not exclude malignancy. I will follow this up in 2 weeks with a repeat chest x-ray and then followed to resolution. Constitutional: Present: Alert, Oriented x3, Cooperative, Well developed, Well nourished, No distress ENT Exam: Present: normal ENT inspection, hearing grossly normal, pharynx normal , TMs normal Neck: Present: non-tender Breasts: Present: Exam deferred Respiratory: Present: chest non-tender, decreased breath sounds, rhonchi, stridor, wheezing, expiration (prolonged), No rales. Absent: inspiration Cardiovascular/Chest: Present: normal peripheral pulses, regular rate, rhythm, no chest tenderness, no edema, no gallop, no JVD, no murmur Abdomen: Present: Normal bowel sounds, soft, nontender, nondistended, no rebound tenderness, no hepatospenomegaly, no masses /Rectal: Present: Exam deferred Extremity: Present: normal range of motion Skin Exam: Present: normal color, warm/dry, no cyanosis Lymphatic: Present: no adenopathy Neurologic: Present: movable bulkhead installer II-XII nml as tested, normal cerebellar test, no motor/ sensory deficits, normal mood/affect, oriented x 3, abnormal cerebellar tests, abnormal movable bulkhead installer II-XII Appearance: Present: appropriate appearance Eye contact: Present: cooperative, good eye contact, normal speech Thoughts: Present: normal thought pattern Assessment/Plan Plan Narrative: 1. Right lower lobe pneumonia 2. Asthma 3. Leukocytosis resolved 4. Lightheadedness resolved 5. Hypotension resolved - Problems/Diagnosis (1) Pneumonia Problem: Acute Qualifiers: Pneumonia type: due to unspecified organism Laterality: right Lung location: lower lobe of lung Qualified Code(s): J18.1 - Lobar pneumonia, unspecified organism (2) Asthma Problem: Acute Qualifiers: Asthma severity: moderate Asthma persistence: persistent Asthma complication type: with acute exacerbation Qualified Code(s): J45.41 - Moderate persistent asthma with (acute) exacerbation (3) Hypotension Problem: Acute Qualifiers: Hypotension type: other hypotension type Qualified Code(s): I95.89 - Other hypotension (4) Leukocytosis Problem: Acute Qualifiers: Leukocytosis type: bandemia Qualified Code(s): D72.825 - Bandemia (5) Dyspnea on exertion Problem: Acute
[2017-11-27] MEDS: MONTELUKAST SODIUM 10 MG TABLET PO SCH (21:34)
[2017-11-27] MEDS: ENOXAPARIN SODIUM 40 MG/0.4 ML SYRG SC SCH (21:34)
[2017-11-28] MEDS ORDERED: ALBUTEROL SULFATE/IPRATROPIUM 3 ML NEBU IH ONE (01:22)
[2017-11-28 03:40] VITALS: BP 134/67
--- NOTE | 2017-11-28 05:26 | DS ---
(1) Dyspnea on exertion Problem: Resolved (2) Leukocytosis Problem: Resolved Qualifiers: Leukocytosis type: bandemia Qualified Code(s): D72.825 - Bandemia (3) Pneumonia Problem: Acute Qualifiers: Pneumonia type: due to unspecified organism Laterality: right Lung location: lower lobe of lung Qualified Code(s): J18.1 - Lobar pneumonia, unspecified organism (4) GERD (gastroesophageal reflux disease) Problem: Chronic Qualifiers: Esophagitis presence: esophagitis presence not specified Qualified Code(s) : K21.9 - Gastro-esophageal reflux disease without esophagitis (5) HLD (hyperlipidemia) Problem: Chronic Qualifiers: Hyperlipidemia type: unspecified Qualified Code(s): E78.5 - Hyperlipidemia , unspecified (6) Hypothyroidism Problem: Chronic Qualifiers: Hypothyroidism type: acquired Qualified Code(s): E03.9 - Hypothyroidism, unspecified Description of Stay: 67 year old female patient adm to the hospital with reports of cough,fever, nausea, sore throat and body aches. PMH of moderate, persistent asthma, diverticulitis, GERD, HLD, hypothyroidism, and eczema. ER evaluation showed temp 38.7, hr 105, bp 111/78. labs significant for elevated wbc at 19.6 with 83.1 neutrophils, lactic acid 1.8, influenza and strep negative, and UA positive for 100 protein, 5 blood, 1 bili and 25 leukocytes. Chest xray showed RLL pneumonia. Patient to be admitted to observation for RLL pneumonia and asthma exacerbation.During adm she was treated with IV antbx and tolerated it well, s/s gradually improved and stable for discharge home with f/u in [address] Moffett. pt to complete Ceftin as prescribed and have repeat CXR in 2 weeks. She will continue to use he nebulizers she already have at home PRN. Procedures Performed: none Results and Findings: Laboratory Tests 11/25/17 11/26/17 11/27/17 14:36 06:03 05:35 WBC 19.6 H 13.8 H D 7.2 D RBC 4.64 3.93 L 3.71 L Hgb 14.0 11.8 L 11.0 L Hct 41.9 35.5 L 33.4 L Neutrophils % 83.1 H 74.9 52.8 11/25/17 CXR: Mass like opacity in the right lower lobe Discharge Disposition: Home self care Disposition: Home self-care Condition: Fair Discharge Activity: Activity as tolerated Discharge Diet: General/regular food Referrals: Everardo Moffett DO [Staff Physician] - Additional Patient Instructions (free text): -Please make TCM appointment unless custodial discharge. Thank you! Nina @ [phone] up [address] Moffett in 2 weeks call for appt time. Continue to use home nebulizer treatments. Prescriptions (Any new or edited meds): Cefuroxime Axetil [Ceftin] 500 mg PO BID 10 Days #20 tab guaiFENesin [Guaifenesin ER] 600 mg PO BID PRN #20 tab.er.12h PRN Reason: Cough Complete Home Medications List: Complete Home Medication List: Albuterol Sulfate [Proair Hfa] 1 - 2 puff IH Q4H PRN 02/04/16 Inhaler,Assist Device,Accesory [Vortex] 1 each MC DAILY 02/04/16 Levothyroxine Sodium [Synthroid] 50 mcg PO DAILY 02/04/16 Montelukast Sodium [Singulair] 10 mg PO DAILY 02/04/16 Fluticasone/Salmeterol [Advair 100-50 Diskus] 2 puff IH BID 11/25/17 Omeprazole 40 mg PO DAILY 11/25/17 Cefuroxime Axetil [Ceftin] 500 mg PO BID 10 Days #20 tab 11/28/17 guaiFENesin [Guaifenesin ER] 600 mg PO BID PRN #20 tab.er.12h 11/28/17 Amb Orders for Discharge: Chest PA & Lateral * Time Frame: 2 Weeks, Location: Determined By Patient
[2017-11-28] MEDS: LEVOTHYROXINE SODIUM 50 MCG TABLET PO SCH (07:31)
[2017-11-28] MEDS: PANTOPRAZOLE SODIUM 40 MG TABLET.EC PO SCH (07:31)
[2017-11-28] MEDS: ACETAMINOPHEN 325 MG TABLET PO PRN (07:34)
[2017-11-28] MEDS: BUDESONIDE 0.25 MG/2 ML VIAL.NEB IH SCH (07:56)
[2017-11-28] MEDS: ALBUTEROL SULFATE/IPRATROPIUM 3 ML NEBU IH SCH (07:58)
[2017-11-28] MEDS: CEFUROXIME AXETIL 500 MG TABLET PO SCH (08:39)
== END 2017-11-28 10:50 | disposition home or self-care (01) | DRG 194 ==
LOC: ER 13:58 → MS 16:40 → OBSVTOIN 11-26 17:32
PROVIDERS: ADMIT Internal Medicine; ATTEND Family Medicine
DX: J18.1 Lobar pneumonia, unspecified organism; E03.9 Hypothyroidism, unspecified; E78.5 Hyperlipidemia, unspecified; J45.41 Moderate persistent asthma with (acute) exacerbation; K21.9 Gastro-esophageal reflux disease without esophagitis